=== PATIENT | female | born 1990 | race African-American/Black ===

== ENCOUNTER 2017-10-25 20:38 | Emergency (ER) | payer MEDICAID, OTHER ==
[~2017-10-25] VITALS: Ht 182.9 cm; Wt 101.9 kg
[~2017-10-25 20:38] MED LIST: FERR-43 PO
[2017-10-25 23:00] VITALS: BP 139/71
== END 2017-10-26 14:11 | disposition home or self-care (01) ==
LOC: ER 10-26 09:46
DX: N61.1 Abscess of the breast and nipple (principal); F41.9 Anxiety disorder, unspecified; I10 Essential (primary) hypertension; F17.200 Nicotine dependence, unspecified, uncomplicated; Z98.890 Other specified postprocedural states
CPT/HCPCS: 99283

== ENCOUNTER 2018-11-13 10:38 | Inpatient (IN) | payer OTHER ==
[2018-11-13] VITALS (20 sets, daily range): BP systolic 104–141; BP diastolic 52–86
[~2018-11-13] VITALS: Ht 180.3 cm; Wt 113.4 kg
[2018-11-13] MEDS ORDERED: SODIUM CHLORIDE 0.9% 1,000 ML IV ONE (10:49)
[2018-11-13 11:08] LABS: BASOPHILS % 0.5 % (0.0-2.0); EOSINOPHILS % 1.1 % (0.0-5.0); HEMATOCRIT. 34.1 % (36.0-48.0); HEMOGLOBIN. 10.4 g/dL (12.0-16.0); LYMPHOCYTES % 23.7 % (20.0-50.0); MEAN CORPUSCULAR HEMOGLOBIN 24.7 pg (28.0-32.0); MEAN PLATELET VOLUME 7.4 fl (7.4-10.4); MONOCYTES % 4.5 % (2.0-8.0); NEUTROPHILS % 70.2 % (40.0-76.0); PLATELET 265 x1000/uL (130-400); RED BLOOD CELL COUNT 4.21 mill/uL (4.2-5.4); RED CELL DISTRIBUTION WIDTH 17.1 % (11.6-14.6)
[2018-11-13 11:15] LABS: INR 1.1; PROTHROMBIN TIME 11.2 sec (9.6-11.0)
[2018-11-13 11:30] LABS: CLARITY URINE CLOUDY (CLEAR); COLOR URINE YELLOW (YELLOW); KETONES URINE NEGATIVE (NEGATIVE); LEUKOCYTE ESTERASE URINE NEGATIVE (NEGATIVE); NITRITE URINE NEGATIVE (NEGATIVE); OCCULT BLOOD URINE TRACE (NEGATIVE); PH URINE 6.5 (4.5-8.0); PROTEIN URINE 3+ (NEGATIVE); SPECIFIC GRAVITY URINE 1.017 (1.005-1.030)
[2018-11-13 11:54] LABS: BG BASE EXCESS -8.5 mmol/L (-2.0-2.0); BG CARBOXYHEMOGLOBIN 0.3 % (0.5-1.5); BG DEOXYHEMOGLOBIN 4.1 % (0.0-5.0); BG FRACTION INSPIRED OXYGEN 100; BG HCO3 ACT 16.4 mmol/L (22.0-26.0); BG METHEMOGLOBIN 0.3 % (0.0-1.5); BG OXYGEN SATURATION 95.9 % (92.0-98.5); BG OXYHEMOGLOBIN 95.3 % (94.0-97.0); BG PCO2 31.7 mmHg (35.0-45.0); BG PH 7.331 (7.350-7.450); BG PO2 90.8 mmHg (75.0-100.0); BG SAMPLE SITE RIGHT RADIAL; BG TOTAL HEMOGLOBIN 11.2 g/dL (12.0-18.0); BG VENT MODE MASK - NRB
[2018-11-13 12:13] LABS: CHLORIDE 113 mEq/L (98-107)
[2018-11-13 12:19] LABS: ETHANOL BLOOD < 10 mg/dL
[2018-11-13 12:26] LABS: HCG SCREEN NEGATIVE
[2018-11-13 12:39] LABS: *AMPHETAMINES SCREEN URINE NEGATIVE (NEGATIVE); *BARBITURATES SCREEN URINE NEGATIVE (NEGATIVE); *BENZODIAZEPINES SCREEN URINE NEGATIVE (NEGATIVE); METHADONE URINE SCREEN NEGATIVE (NEGATIVE)
[2018-11-13 12:40] LABS: CANNABINOID URINE SCREEN NEGATIVE (NEGATIVE); OPIATES URINE SCREEN NEGATIVE (NEGATIVE); PHENCYCLIDINE URINE SCREEN NEGATIVE (NEGATIVE)
[2018-11-13 12:43] LABS: *COCAINE SCREEN URINE PRESUMTIVE POSITIVE (NEGATIVE)
[2018-11-13] MEDS ORDERED: ENOXAPARIN 100MG/ML SYR SUBCUT ONE (13:15)
[2018-11-13] MEDS ORDERED: IOHEXOL-350 100 ML BOTTLE ONE (13:58)
[2018-11-13] MEDS ORDERED: HEPARIN 5000 UNITS/ML VIAL IV ONE (14:15)
[2018-11-13] MEDS ORDERED: HEPARIN 25,000 UNITS PREMIX 500 ML IV SCH (14:15)
[2018-11-13] MEDS ORDERED: IPRATROPIUM/ALBUTEROL 0.5-3(2.5)MG/3ML NEB HHN PRN (16:30)
[2018-11-13] MEDS ORDERED: MORPHINE SULFATE 2 MG/ML CPJ (NOT FOR IM USE) IV PRN (16:30)
[2018-11-13] MEDS ORDERED: ONDANSETRON HCL 4MG/2ML INJ IV PRN (16:30)
[2018-11-13] MEDS ORDERED: ACETAMINOPHEN 325MG TABLET PO PRN (16:30)
[2018-11-13] MEDS ORDERED: IPRATROPIUM/ALBUTEROL 0.5-3(2.5)MG/3ML NEB INH PRN (16:30)
[2018-11-13 16:39] LABS: BG BASE EXCESS -5.6 mmol/L (-2.0-2.0); BG CARBOXYHEMOGLOBIN 0.2 % (0.5-1.5); BG DEOXYHEMOGLOBIN 3.4 % (0.0-5.0); BG FRACTION INSPIRED OXYGEN 52; BG HCO3 ACT 18.5 mmol/L (22.0-26.0); BG OXYGEN SATURATION 96.6 % (92.0-98.5); BG OXYHEMOGLOBIN 96.4 % (94.0-97.0); BG PCO2 31.7 mmHg (35.0-45.0); BG PH 7.385 (7.350-7.450); BG PO2 91.9 mmHg (75.0-100.0); BG SAMPLE SITE RIGHT BRACHIAL; BG TOTAL HEMOGLOBIN 10.7 g/dL (12.0-18.0); BG VENT MODE MASK - SIMPLE
[2018-11-13] MEDS: SODIUM CHLORIDE 0.45% 1,000 ML IV SCH (17:48)
[2018-11-14] VITALS (39 sets, daily range): BP systolic 95–142; BP diastolic 42–102
[2018-11-14] MEDS: SODIUM CHLORIDE 0.45% 1,000 ML IV SCH ×2 (03:00→13:50)
[2018-11-14] MEDS: ENOXAPARIN 120MG/0.8ML SYR SUBCUT SCH ×2 (03:30→15:56)
[2018-11-14 05:08] LABS: BASOPHILS % 0.3 % (0.0-2.0); HEMATOCRIT. 29.4 % (36.0-48.0); HEMOGLOBIN. 9.5 g/dL (12.0-16.0); LYMPHOCYTES % 18.4 % (20.0-50.0); MEAN CORPUSCULAR HEMOGLOBIN 25.3 pg (28.0-32.0); MEAN PLATELET VOLUME 7.8 fl (7.4-10.4); MONOCYTES % 7.6 % (2.0-8.0); NEUTROPHILS % 72.7 % (40.0-76.0); PLATELET 221 x1000/uL (130-400); RED BLOOD CELL COUNT 3.77 mill/uL (4.2-5.4); RED CELL DISTRIBUTION WIDTH 16.5 % (11.6-14.6)
[2018-11-14 05:21] LABS: CHLORIDE 111 mEq/L (98-107)
[2018-11-14 05:36] LABS: CREATINE KINASE 117 IU/L (26-192)
[2018-11-14 05:38] LABS: CREATINE KINASE MB FRACTION 6.7 ng/mL (0.5-3.6); HDL CHOLESTEROL 42 mg/dL (40-59)
[2018-11-14 05:39] LABS: LDL CHOLESTEROL 59 mg/dL (5-100)
[2018-11-14 11:36] LABS: BG BASE EXCESS -0.4 mmol/L (-2.0-2.0); BG CARBOXYHEMOGLOBIN 0.3 % (0.5-1.5); BG DEOXYHEMOGLOBIN 5.7 % (0.0-5.0); BG FRACTION INSPIRED OXYGEN 21; BG HCO3 ACT 23.7 mmol/L (22.0-26.0); BG METHEMOGLOBIN 0.1 % (0.0-1.5); BG OXYGEN SATURATION 94.3 % (92.0-98.5); BG OXYHEMOGLOBIN 93.9 % (94.0-97.0); BG PCO2 36.8 mmHg (35.0-45.0); BG PH 7.427 (7.350-7.450); BG PO2 72.6 mmHg (75.0-100.0); BG SAMPLE SITE RIGHT RADIAL; BG VENT MODE ROOM AIR
[2018-11-14 13:23] LABS: HEPATITIS B SURFACE ANTIGEN NEGATIVE
[2018-11-14] MEDS: CEFTRIAXONE 1 G PREMIX 50 ML IV SCH (13:47)
[2018-11-14 13:52] LABS: HEPATITIS A AB IGM NEGATIVE (NEGATIVE)
[2018-11-14] MEDS ORDERED: ACETAMINOPHEN 650MG SUPP PR PRN (14:45)
[2018-11-14] MEDS ORDERED: LACTULOSE 20G/30ML UDC PO PRN (14:45)
[2018-11-14] MEDS ORDERED: DIPHENHYDRAMINE 50MG/ML VIAL IV PRN (14:45)
[2018-11-14] MEDS ORDERED: HYDRALAZINE 20MG/ML VIAL IV PRN (14:45)
[2018-11-14] MEDS ORDERED: HYDROCODONE/ACETAMINOPHEN 5/325MG TABLET PO PRN (14:45)
[2018-11-14] MEDS ORDERED: LORAZEPAM 2MG/ML CPJ IV PRN (14:45)
[2018-11-14 19:08] LABS: CHLORIDE 108 mEq/L (98-107)
[2018-11-15] VITALS (34 sets, daily range): BP systolic 54–151; BP diastolic 26–96
[2018-11-15] MEDS: ENOXAPARIN 120MG/0.8ML SYR SUBCUT SCH (04:17)
[2018-11-15 05:43] LABS: BASOPHILS % 0.5 % (0.0-2.0); EOSINOPHILS % 2.6 % (0.0-5.0); MEAN CORPUSCULAR VOLUME 77.7 fL (81.0-99.0); MEAN PLATELET VOLUME 8.2 fl (7.4-10.4); MONOCYTES % 8.3 % (2.0-8.0); NEUTROPHILS % 55.6 % (40.0-76.0); PLATELET 208 x1000/uL (130-400); RED CELL DISTRIBUTION WIDTH 16.6 % (11.6-14.6)
[2018-11-15 05:55] LABS: CHLORIDE 110 mEq/L (98-107)
[2018-11-15] MEDS: CEFTRIAXONE 1 G PREMIX 50 ML IV SCH (15:18)
[2018-11-15] MEDS: APIXABAN 5 MG TABLET PO SCH (20:53)
[2018-11-16] VITALS (22 sets, daily range): BP systolic 123–150; BP diastolic 56–96
[2018-11-16 05:41] LABS: BASOPHILS % 0.3 % (0.0-2.0); EOSINOPHILS % 2.4 % (0.0-5.0); HEMATOCRIT. 27.6 % (36.0-48.0); HEMOGLOBIN. 8.9 g/dL (12.0-16.0); LYMPHOCYTES % 21.3 % (20.0-50.0); MEAN CORPUSCULAR VOLUME 77.2 fL (81.0-99.0); MEAN PLATELET VOLUME 8.2 fl (7.4-10.4); MONOCYTES % 8.1 % (2.0-8.0); NEUTROPHILS % 67.9 % (40.0-76.0); PLATELET 203 x1000/uL (130-400); RED BLOOD CELL COUNT 3.57 mill/uL (4.2-5.4); RED CELL DISTRIBUTION WIDTH 16.2 % (11.6-14.6)
[2018-11-16 05:57] LABS: CHLORIDE 108 mEq/L (98-107)
[2018-11-16] MEDS: APIXABAN 5 MG TABLET PO SCH (10:04)
[2018-11-16] MEDS ORDERED: SPIRONOLACTONE 25MG TABLET PO SCH (11:00)
[2018-11-16 13:06] LABS: HIV SCREEN 4G Non Reactive (Non Reactive)
[2018-11-16] MEDS: CEFTRIAXONE 1 G PREMIX 50 ML IV SCH (13:07)
[2018-11-16] MEDS ORDERED: LISINOPRIL 10MG TABLET PO SCH (21:00)
[2018-11-18 09:17] LABS: DRVVT LA 34.9 sec (0.0-47.0); PROTEIN C FUNCTIONAL 75 % (73-180); PTT-LA 54.1 sec (0.0-51.9); PTT-LA MIX 48.6 sec (0.0-48.9)
[2018-11-19 05:52] LABS: LUPUS ANTICOAG INTERPRETATION Comment: (.); PTT-LA INCUB MIX 47.9 sec (0.0-48.9)
[2018-11-22] MEDS ORDERED: APIXABAN 5 MG TABLET PO SCH (21:00)
== END 2018-11-16 16:56 | disposition home or self-care (01) | DRG 134 ==
LOC: ER 10:38 → CVICU 14:10 → EDBEDREQ 14:28 → EDBEDREQSVC 14:28 → ENRESERV 14:45 → 7WST 11-16 09:34
PROVIDERS: ADMIT Internal Medicine; ATTEND Internal Medicine
DX: I26.09 Other pulmonary embolism with acute cor pulmonale (principal); I21.4 Non-ST elevation (NSTEMI) myocardial infarction; G93.40 Encephalopathy, unspecified; I50.23 Acute on chronic systolic (congestive) heart failure; D68.59 Other primary thrombophilia; I27.29 Other secondary pulmonary hypertension; I27.81 Cor pulmonale (chronic); I95.9 Hypotension, unspecified; I11.0 Hypertensive heart disease with heart failure; G90.8 Other disorders of autonomic nervous system; I42.9 Cardiomyopathy, unspecified; D64.9 Anemia, unspecified; R74.0 Nonspecific elevation of levels of transaminase and lactic acid dehydrogenase [LDH]; F41.9 Anxiety disorder, unspecified; N39.0 Urinary tract infection, site not specified; F19.10 Other psychoactive substance abuse, uncomplicated; F32.9 Major depressive disorder, single episode, unspecified; R73.9 Hyperglycemia, unspecified; K76.9 Liver disease, unspecified; Z82.49 Family history of ischemic heart disease and other diseases of the circulatory system; Z98.891 History of uterine scar from previous surgery; Z91.19 Patient's noncompliance with other medical treatment and regimen; Z79.899 Other long term (current) drug therapy
CPT/HCPCS: 36415; 36600; 71045; 71275; 73560; 76705; 80048; 80061; 80305; 80320; 81003; 82375; 82550; 82553; 82805; 82962; 83036; 83735; 83880; 84484; 84703; 85303; 85306; 85379; 85613; 85732; 86705; 86709; 86803; 87340; 87389; 93005; 93306; 93880; 93970; 99291; J0696; J1650; J7030; Q9967; G0480